=== PATIENT | female | born 2000 | race African-American/Black ===

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

== ENCOUNTER 2019-01-05 22:08 | Emergency (ER) | payer SELFPAY ==
[~2019-01-05] VITALS: Ht 172.7 cm; Wt 73.0 kg
[2019-01-05] MEDS ORDERED: HYDROCODONE/ACETAMINOPHEN 5/325MG TABLET PO ONE (23:00)
[2019-01-05] MEDS ORDERED: IBUPROFEN 800MG TABLET PO ONE (23:30)
[2019-01-06 00:54] VITALS: BP 122/65
== END 2019-01-06 00:55 | disposition home or self-care (01) ==
LOC: ER 22:08
DX: S00.83XA Contusion of other part of head, initial encounter (principal); S09.8XXA Other specified injuries of head, initial encounter; M54.6 Pain in thoracic spine; F12.10 Cannabis abuse, uncomplicated; Z88.5 Allergy status to narcotic agent; Y08.89XA Assault by other specified means, initial encounter; Y93.89 Activity, other specified; Y92.89 Other specified places as the place of occurrence of the external cause; Y99.8 Other external cause status
CPT/HCPCS: 70486; 71045; 81025; 99284

== ENCOUNTER 2019-01-07 08:25 | Emergency (ER) | payer SELFPAY ==
[~2019-01-07] VITALS: Ht 175.3 cm; Wt 84.0 kg
[2019-01-07 08:29] VITALS: BP 115/74
[2019-01-07] MEDS ORDERED: CYCLOBENZAPRINE 10MG TABLET PO ONE (11:15)
[2019-01-07] MEDS ORDERED: KETOROLAC 30MG/ML VIAL IM ONE (11:15)
[2019-01-07 11:19] LABS: CLARITY URINE CLEAR (CLEAR); COLOR URINE YELLOW (YELLOW); KETONES URINE 1+ (NEGATIVE); LEUKOCYTE ESTERASE URINE NEGATIVE (NEGATIVE); NITRITE URINE NEGATIVE (NEGATIVE); OCCULT BLOOD URINE 2+ (NEGATIVE); PH URINE 5.5 (4.5-8.0); PROTEIN URINE 1+ (NEGATIVE); SPECIFIC GRAVITY URINE 1.027 (1.005-1.030)
== END 2019-01-07 13:35 | disposition home or self-care (01) ==
LOC: ER 08:25
DX: S41.152A Open bite of left upper arm, initial encounter (principal); M54.2 Cervicalgia; M54.6 Pain in thoracic spine; R07.81 Pleurodynia; Y04.1XXA Assault by human bite, initial encounter; Y93.89 Activity, other specified; Y92.89 Other specified places as the place of occurrence of the external cause
CPT/HCPCS: 71111; 72070; 81003; 81025; 96372; 99284; J1885